=== PATIENT | male | born 1985 | race Caucasian/White ===

== ENCOUNTER 2021-04-27 19:35 | Emergency (ER) | payer OTHER ==
[2021-04-27] MEDS ORDERED: BACTRIM DS TAB1 EACH PO (22:16)
[2021-04-27] MEDS ORDERED: IBU800 MG PO (22:16)
== END 2021-04-27 22:35 | disposition home or self-care (01) ==
LOC: ER1 19:35
DX: L02.416 Cutaneous abscess of left lower limb (principal); T63.301A Toxic effect of unspecified spider venom, accidental (unintentional), initial encounter; F17.210 Nicotine dependence, cigarettes, uncomplicated
CPT/HCPCS: 10060; 87070; 87077; 87186; 87205; 99283

== ENCOUNTER 2022-06-08 06:02 | Emergency (ER) | payer OTHER ==
[~2022-06-08 06:02] MED LIST: BACTRIM DS TAB1 EACH PO; IBU800 MG PO
[2022-06-08] MEDS ORDERED: BACTRIM DS TAB1 EACH PO (06:19)
[2022-06-08] MEDS ORDERED: CEPHALEXIN500 MG PO (06:19)
== END 2022-06-08 06:40 | disposition home or self-care (01) ==
LOC: ER1 06:02
DX: L03.113 Cellulitis of right upper limb (principal); L02.413 Cutaneous abscess of right upper limb; F17.210 Nicotine dependence, cigarettes, uncomplicated
CPT/HCPCS: 99283